=== PATIENT | male | born 1980 | race Hispanic/Latino ===

== ENCOUNTER 2022-06-14 16:07 | Inpatient (IN) | payer BC, SELFPAY ==
[2022-06-14 17:32] VITALS: BMI 28.4
[2022-06-14 18:41] LABS: SARS-CoV-2 NAA Rapid Test Not Detected (NotDetected)
[2022-06-14] MEDS ORDERED: Acetaminophen 325 MG TAB PO PRN (18:52)
[2022-06-14] MEDS ORDERED: HYDROcodone/Acetaminophen 5/325 mg Tablet PO PRN (18:52)
[2022-06-14] MEDS ORDERED: Ondansetron PF 4 MG/2 ML Vial IVP PRN (18:52)
[2022-06-14] MEDS ORDERED: Morphine 2 MG/ML VIAL SLOW IVP PRN (19:05)
[2022-06-14] MEDS: Metoprolol Tartrate 25 MG TAB PO SCH (20:52)
[2022-06-14] MEDS: Sodium Chloride 0.9% 1,000 ML IV SCH (20:52)
[2022-06-14] MEDS: Famotidine 20 MG TAB PO SCH (20:52)
[2022-06-14] MEDS: Morphine 4 MG/ML VIAL SLOW IVP PRN (20:57)
[2022-06-14] MEDS ORDERED: Piperacillin/Tazobactam 3.375 GM in Sodium Chloride 0.9% 100 ML IVPB SCH (22:00)
[2022-06-14] MEDS ORDERED: Piperacillin/Tazobactam 4.5 GM in Sodium Chloride 0.9% 100 ML IVPB SCH (23:59)
[2022-06-15] MEDS ORDERED: Piperacillin/Tazobactam 3.375 GM in Sodium Chloride 0.9% 100 ML IVPB SCH (02:00)
[2022-06-15] MEDS: HYDROcodone/Acetaminophen 10/325 mg Tablet PO PRN ×2 (04:36→19:02)
[2022-06-15 06:05] LABS: #Eosinphils 0.2 thou/uL (0.0-0.7); #Lymphocytes 1.6 thou/uL (1.20-3.40); #Monocytes 0.8 thou/uL (0.11-0.59); #Neutrophils 3.4 thou/uL (1.40-6.50); %Basophils 0.7 % (0.0-1.0); %Eosinophils 3.4 % (0.0-10.0); %Monocytes 13.6 % (0.0-10.0); %Neutrophils 56.2 % (42.0-75.0); Hemoglobin 14.2 g/dL (14.0-18.0); Mean Corpuscular HGB CONC 33.5 g/dL (32.0-36.0); Mean Corpuscular Volume 89.5 fl (78.0-98.0); Mean Platelet Volume 6.5 fL (7.4-10.4); Platelet Count 266 10x3/uL (130-400); RBC Distribution Width 12.8 % (11.5-14.5); Red Blood Cell (RBC) Count 4.73 mill/uL (4.70-6.10)
[2022-06-15] MEDS: Levothyroxine Sodium 100 MCG TAB PO SCH (06:05)
[2022-06-15 06:13] LABS: INR-International Normal Ratio 1.7; Prothrombin Time 20.4 sec (12.0-14.7)
[2022-06-15 06:24] LABS: ALT (SGPT) 467 U/L (8-55); AST (SGOT) 515 U/L (5-34); Alkaline Phosphatase 207 U/L (40-110); Anion Gap 12 mmol/L (10-20); BUN (Urea Nitrogen) 8 mg/dL (8.9-20.6); Bilirubin, Total 2.8 mg/dL (0.2-1.2); Calc. Creatinine Clearance 99 mL/min (70-130); Carbon Dioxide 23 mmol/L (22-29); Chloride 105 mmol/L (98-107); Estimated GFR 76; Globulin 2.6 g/dL (2.4-3.5); Glucose 86 mg/dL (70-105); Potassium 3.9 mmol/L (3.5-5.1); Protein, Total 6.6 g/dL (6.0-8.3); Sodium 136 mmol/L (136-145)
[2022-06-15] MEDS ORDERED: Iopamidol 0 ML ONE (08:14)
[2022-06-15] MEDS ORDERED: Bupivacaine/Epinephrine 0.25% 30 ML VIAL ONE (08:14)
[2022-06-15] MEDS: Metoprolol Tartrate 25 MG TAB PO SCH ×2 (08:19→20:29)
[2022-06-15] MEDS: Famotidine 20 MG TAB PO SCH ×2 (08:19→20:30)
[2022-06-15] MEDS: Piperacillin/Tazobactam 3.375 GM in Sodium Chloride 0.9% 100 ML IVPB SCH ×2 (11:15→17:40)
[2022-06-15] MEDS: Sodium Chloride 0.9% 1,000 ML IV SCH ×2 (11:19→23:52)
[2022-06-15] MEDS: Morphine 4 MG/ML VIAL SLOW IVP PRN (20:30)
[2022-06-16] MEDS: Piperacillin/Tazobactam 3.375 GM in Sodium Chloride 0.9% 100 ML IVPB SCH ×3 (02:42→18:15)
[2022-06-16] MEDS: Levothyroxine Sodium 100 MCG TAB PO SCH (06:19)
[2022-06-16 06:34] LABS: #Eosinphils 0.2 thou/uL (0.0-0.7); #Lymphocytes 2.2 thou/uL (1.20-3.40); #Monocytes 0.6 thou/uL (0.11-0.59); #Neutrophils 2.7 thou/uL (1.40-6.50); %Basophils 0.7 % (0.0-1.0); %Eosinophils 4.2 % (0.0-10.0); %Lymphocytes 38.1 % (21.0-51.0); %Monocytes 10.8 % (0.0-10.0); %Neutrophils 46.1 % (42.0-75.0); Hemoglobin 14.8 g/dL (14.0-18.0); Mean Corpuscular HGB CONC 34.7 g/dL (32.0-36.0); Mean Corpuscular Hemoglobin 30.9 pg (27.0-31.0); Mean Corpuscular Volume 89.1 fl (78.0-98.0); Mean Platelet Volume 6.7 fL (7.4-10.4); Platelet Count 273 10x3/uL (130-400); RBC Distribution Width 12.8 % (11.5-14.5); Red Blood Cell (RBC) Count 4.81 mill/uL (4.70-6.10); White Blood Cell (WBC) Count 5.8 10x3/uL (4.8-10.8)
[2022-06-16 06:42] LABS: INR-International Normal Ratio 1.5; Prothrombin Time 18.3 sec (12.0-14.7)
[2022-06-16 06:53] LABS: ALT (SGPT) 565 U/L (8-55); AST (SGOT) 347 U/L (5-34); Albumin 4.2 g/dL (3.5-5.0); Alkaline Phosphatase 334 U/L (40-110); Bilirubin, Total 4.8 mg/dL (0.2-1.2); Protein, Total 7.1 g/dL (6.0-8.3)
[2022-06-16 07:03] LABS: Anion Gap 15 mmol/L (10-20); BUN (Urea Nitrogen) 10 mg/dL (8.9-20.6); Calc. Creatinine Clearance 92 mL/min (70-130); Calcium 9.4 mg/dL (7.8-10.44); Carbon Dioxide 24 mmol/L (22-29); Chloride 105 mmol/L (98-107); Estimated GFR 69; Glucose 77 mg/dL (70-105); Potassium 3.8 mmol/L (3.5-5.1); Sodium 140 mmol/L (136-145)
[2022-06-16] MEDS ORDERED: Iopamidol 15 ML ONE ×2 (07:10→10:50)
[2022-06-16] MEDS: Metoprolol Tartrate 25 MG TAB PO SCH ×2 (09:46→21:28)
[2022-06-16] MEDS: Famotidine 20 MG TAB PO SCH ×2 (09:46→21:28)
[2022-06-16] MEDS ORDERED: Indomethacin 50 MG SUPP ONE (10:41)
[2022-06-16] MEDS ORDERED: Fentanyl 250 MCG/5 ML VIAL ONE (10:47)
[2022-06-16] MEDS ORDERED: Dexmedetomidine 200 MCG/2 ML VIAL ONE (10:47)
[2022-06-16] MEDS ORDERED: Bupivacaine HCl 0.5%/Epinephrine 1:200,000/PF 30 ml Vial ONE (10:50)
[2022-06-16] MEDS ORDERED: Lidocaine 1% (PF) 30 ML VIAL ONE (10:50)
[2022-06-16] MEDS ORDERED: Bupivacaine/Epinephrine 0.25% 30 ML VIAL ONE (10:51)
[2022-06-16] MEDS: Sodium Chloride 0.9% 1,000 ML IV SCH (11:09)
[2022-06-16] MEDS ORDERED: Dexamethasone 20 MG/5 ML VIAL ONE (11:10)
[2022-06-16] MEDS ORDERED: Rocuronium Bromide 10 MG/ML (10ML VIAL) ONE (11:10)
[2022-06-16] MEDS ORDERED: PROPOFOL 200 MG/20 ML VIAL ONE (11:10)
[2022-06-16] MEDS ORDERED: NEOSTIGMINE 3 MG/3 ML SYR 3 MG/3 ML SYRINGE ONE (11:10)
[2022-06-16] MEDS ORDERED: Ondansetron PF 4 MG/2 ML Vial ONE (11:10)
[2022-06-16] MEDS ORDERED: Glycopyrrolate 0.2 MG/ML 5 ML SYRINGE ONE (11:10)
[2022-06-16] MEDS ORDERED: Lidocaine 1% PF 5 ML VIAL ONE (11:10)
[2022-06-16] MEDS ORDERED: SUGAMMADEX SODIUM 200 MG/2 ML VIAL ONE (12:38)
[2022-06-16] MEDS ORDERED: Ipratropium/Albuterol 3 ML NEB NEB PRN (12:41)
[2022-06-16] MEDS ORDERED: HYDROcodone/Acetaminophen 10/325 mg Tablet PO PRN (12:41)
[2022-06-16] MEDS ORDERED: Ondansetron PF 4 MG/2 ML Vial IVP PRN (12:41)
[2022-06-16] MEDS ORDERED: Dextrose 50% Abboject 50 ML SYRINGE SLOW IVP PRN (12:41)
[2022-06-16] MEDS ORDERED: hydrALAZINE 20 MG/ML VIAL SLOW IVP PRN (12:41)
[2022-06-16] MEDS ORDERED: Dextrose 5% in Water 1,000 ML IV PRN (12:41)
[2022-06-16] MEDS ORDERED: Promethazine HCl 25 MG/ML VIAL IM PRN (12:41)
[2022-06-16] MEDS ORDERED: Mag-Al 1200 mg/1200 mg/30 ML UDCUP PO PRN (12:41)
[2022-06-16] MEDS ORDERED: Calcium Carbonate 500 MG ChewTAB PO PRN (12:41)
[2022-06-16] MEDS ORDERED: Piperacillin/Tazobactam 3.375 GM in Sodium Chloride 0.9% 100 ML IVPB SCH (12:45)
[2022-06-16] MEDS ORDERED: Fentanyl 100 MCG/2 ML VIAL ONE ×3 (13:05→14:08)
[2022-06-16] MEDS: Morphine 4 MG/ML VIAL SLOW IVP PRN ×2 (18:13→21:32)
[2022-06-16] MEDS ORDERED: Famotidine/PF 20 mg/2ml Vial SLOW IVP SCH (21:00)
[2022-06-16] MEDS: HYDROcodone/Acetaminophen 10/325 mg Tablet PO PRN (22:18)
[2022-06-17] MEDS: Piperacillin/Tazobactam 3.375 GM in Sodium Chloride 0.9% 100 ML IVPB SCH ×3 (00:54→18:48)
[2022-06-17] MEDS: Sodium Chloride 0.9% 1,000 ML IV SCH (00:56)
[2022-06-17] MEDS: Morphine 4 MG/ML VIAL SLOW IVP PRN ×4 (02:59→18:47)
[2022-06-17] MEDS: HYDROcodone/Acetaminophen 10/325 mg Tablet PO PRN ×2 (05:06→11:16)
[2022-06-17] MEDS: Levothyroxine Sodium 100 MCG TAB PO SCH (05:07)
[2022-06-17 06:44] LABS: #Lymphocytes 1.6 thou/uL (1.20-3.40); #Monocytes 1.3 thou/uL (0.11-0.59); #Neutrophils 8.1 thou/uL (1.40-6.50); %Basophils 0.2 % (0.0-1.0); %Eosinophils 0.2 % (0.0-10.0); %Lymphocytes 14.2 % (21.0-51.0); %Monocytes 11.4 % (0.0-10.0); %Neutrophils 73.9 % (42.0-75.0); Hemoglobin 13.6 g/dL (14.0-18.0); Mean Corpuscular Hemoglobin 30.6 pg (27.0-31.0); Mean Corpuscular Volume 89.8 fl (78.0-98.0); Mean Platelet Volume 6.3 fL (7.4-10.4); Platelet Count 297 10x3/uL (130-400); RBC Distribution Width 12.9 % (11.5-14.5); Red Blood Cell (RBC) Count 4.45 mill/uL (4.70-6.10)
[2022-06-17 06:51] LABS: INR-International Normal Ratio 1.3; Prothrombin Time 16.4 sec (12.0-14.7)
[2022-06-17 07:03] LABS: ALT (SGPT) 354 U/L (8-55); AST (SGOT) 113 U/L (5-34); Alkaline Phosphatase 275 U/L (40-110); Anion Gap 11 mmol/L (10-20); BUN (Urea Nitrogen) 11 mg/dL (8.9-20.6); Bilirubin, Total 1.9 mg/dL (0.2-1.2); Calc. Creatinine Clearance 86 mL/min (70-130); Calcium 9.1 mg/dL (7.8-10.44); Carbon Dioxide 25 mmol/L (22-29); Chloride 104 mmol/L (98-107); Estimated GFR 64; Globulin 2.7 g/dL (2.4-3.5); Glucose 97 mg/dL (70-105); Lipase 18 U/L (8-78); Potassium 4.3 mmol/L (3.5-5.1); Protein, Total 6.7 g/dL (6.0-8.3); Sodium 136 mmol/L (136-145)
[2022-06-17] MEDS: Metoprolol Tartrate 25 MG TAB PO SCH ×2 (08:35→21:12)
[2022-06-17] MEDS: Famotidine 20 MG TAB PO SCH ×2 (08:35→21:12)
[2022-06-17 15:55] LABS: Hemoglobin 13.4 g/dL (14.0-18.0)
[2022-06-17] MEDS ORDERED: Warfarin Sodium 5 MG TAB PO SCH (17:00)
[2022-06-17] MEDS ORDERED: Promethazine HCl 25 MG/ML VIAL IM PRN (18:38)
[2022-06-17] MEDS ORDERED: HYDROmorphone 10 mg/100 ml CADD IVPB PRN (18:38)
[2022-06-17] MEDS ORDERED: Zolpidem Tartrate 5 MG TAB PO PRN (18:38)
[2022-06-17] MEDS ORDERED: diphenhydrAMINE 25 MG CAP PO PRN (18:38)
[2022-06-17] MEDS ORDERED: diphenhydrAMINE 50 MG/ML VIAL IM PRN (18:38)
[2022-06-17] MEDS ORDERED: diphenhydrAMINE 50 MG/ML VIAL IVP PRN (18:38)
[2022-06-17] MEDS ORDERED: Naloxone HCl 0.4 mg/ml Vial IV PRN (18:38)
[2022-06-17] MEDS ORDERED: Ondansetron PF 4 MG/2 ML Vial IVP PRN (18:38)
[2022-06-17] MEDS ORDERED: Communication Order-Pharmacy FS SCH (18:45)
[2022-06-18] MEDS: Piperacillin/Tazobactam 3.375 GM in Sodium Chloride 0.9% 100 ML IVPB SCH ×3 (02:30→17:48)
[2022-06-18] MEDS: Levothyroxine Sodium 100 MCG TAB PO SCH (05:23)
[2022-06-18 06:22] LABS: #Eosinphils 0.1 thou/uL (0.0-0.7); #Monocytes 0.9 thou/uL (0.11-0.59); %Basophils 0.4 % (0.0-1.0); %Eosinophils 1.6 % (0.0-10.0); %Lymphocytes 21.8 % (21.0-51.0); %Neutrophils 66.2 % (42.0-75.0); Hemoglobin 11.4 g/dL (14.0-18.0); Mean Corpuscular HGB CONC 33.5 g/dL (32.0-36.0); Mean Corpuscular Hemoglobin 30.4 pg (27.0-31.0); Mean Corpuscular Volume 90.7 fl (78.0-98.0); Mean Platelet Volume 6.7 fL (7.4-10.4); Platelet Count 239 10x3/uL (130-400); Red Blood Cell (RBC) Count 3.74 mill/uL (4.70-6.10)
[2022-06-18 06:32] LABS: INR-International Normal Ratio 1.2; Prothrombin Time 15.9 sec (12.0-14.7)
[2022-06-18 06:42] LABS: ALT (SGPT) 294 U/L (8-55); AST (SGOT) 146 U/L (5-34); Albumin 3.7 g/dL (3.5-5.0); Alkaline Phosphatase 211 U/L (40-110); Anion Gap 11 mmol/L (10-20); BUN (Urea Nitrogen) 13 mg/dL (8.9-20.6); Bilirubin, Total 1.2 mg/dL (0.2-1.2); Calc. Creatinine Clearance 107 mL/min (70-130); Calcium 8.3 mg/dL (7.8-10.44); Carbon Dioxide 27 mmol/L (22-29); Chloride 102 mmol/L (98-107); Estimated GFR 83; Globulin 2.5 g/dL (2.4-3.5); Glucose 113 mg/dL (70-105); Potassium 3.6 mmol/L (3.5-5.1); Protein, Total 6.2 g/dL (6.0-8.3); Sodium 136 mmol/L (136-145)
[2022-06-18] MEDS ORDERED: Fentanyl 100 MCG/2 ML VIAL SLOW IVP PRN (09:35)
[2022-06-18] MEDS ORDERED: traMADol HCl 50 MG TAB PO PRN (09:35)
[2022-06-18] MEDS ORDERED: DC PCA Order Set 1 EACH FS SCH (10:17)
[2022-06-18] MEDS: Metoprolol Tartrate 25 MG TAB PO SCH ×2 (10:26→20:55)
[2022-06-18] MEDS: Famotidine 20 MG TAB PO SCH ×2 (10:26→20:55)
[2022-06-18] MEDS: HYDROcodone/Acetaminophen 10/325 mg Tablet PO PRN ×2 (14:14→20:55)
[2022-06-18] MEDS: Warfarin Sodium 5 MG TAB PO SCH (17:47)
[2022-06-18] MEDS: traMADol HCl 50 MG TAB PO PRN (17:47)
[2022-06-19] MEDS: Piperacillin/Tazobactam 3.375 GM in Sodium Chloride 0.9% 100 ML IVPB SCH ×3 (01:49→17:01)
[2022-06-19] MEDS: Levothyroxine Sodium 100 MCG TAB PO SCH (05:39)
[2022-06-19] MEDS: HYDROcodone/Acetaminophen 10/325 mg Tablet PO PRN ×4 (05:40→21:28)
[2022-06-19 06:02] LABS: INR-International Normal Ratio 1.3; Prothrombin Time 16.5 sec (12.0-14.7)
[2022-06-19] MEDS: Metoprolol Tartrate 25 MG TAB PO SCH ×2 (09:12→20:34)
[2022-06-19] MEDS: Famotidine 20 MG TAB PO SCH ×2 (09:12→20:35)
[2022-06-19] MEDS ORDERED: Warfarin Sodium 2 MG TAB PO SCH (17:00)
[2022-06-19] MEDS: Warfarin Sodium 5 MG TAB PO SCH (17:01)
[2022-06-20] MEDS: Piperacillin/Tazobactam 3.375 GM in Sodium Chloride 0.9% 100 ML IVPB SCH ×3 (01:49→17:32)
[2022-06-20] MEDS: traMADol HCl 50 MG TAB PO PRN (01:53)
[2022-06-20] MEDS: Levothyroxine Sodium 100 MCG TAB PO SCH (06:08)
[2022-06-20 07:03] LABS: INR-International Normal Ratio 1.5; Prothrombin Time 19.1 sec (12.0-14.7)
[2022-06-20] MEDS: Metoprolol Tartrate 25 MG TAB PO SCH ×2 (10:03→21:31)
[2022-06-20] MEDS: Famotidine 20 MG TAB PO SCH ×2 (10:03→21:31)
[2022-06-20] MEDS: HYDROcodone/Acetaminophen 10/325 mg Tablet PO PRN (16:06)
[2022-06-20] MEDS: Warfarin Sodium 5 MG TAB PO SCH (17:32)
[2022-06-21] MEDS: Piperacillin/Tazobactam 3.375 GM in Sodium Chloride 0.9% 100 ML IVPB SCH ×3 (02:30→17:07)
[2022-06-21] MEDS: Levothyroxine Sodium 100 MCG TAB PO SCH (06:20)
[2022-06-21 06:45] LABS: #Eosinphils 0.6 thou/uL (0.0-0.7); #Lymphocytes 2.3 thou/uL (1.20-3.40); #Monocytes 0.8 thou/uL (0.11-0.59); #Neutrophils 5.3 thou/uL (1.40-6.50); %Basophils 0.2 % (0.0-1.0); %Eosinophils 6.4 % (0.0-10.0); %Lymphocytes 25.4 % (21.0-51.0); %Monocytes 9.1 % (0.0-10.0); %Neutrophils 58.8 % (42.0-75.0); Hemoglobin 10.6 g/dL (14.0-18.0); Mean Corpuscular HGB CONC 33.8 g/dL (32.0-36.0); Mean Corpuscular Hemoglobin 30.4 pg (27.0-31.0); Mean Corpuscular Volume 89.9 fl (78.0-98.0); Mean Platelet Volume 6.6 fL (7.4-10.4); Platelet Count 308 10x3/uL (130-400); RBC Distribution Width 13.5 % (11.5-14.5); Red Blood Cell (RBC) Count 3.48 mill/uL (4.70-6.10)
[2022-06-21] MEDS: HYDROcodone/Acetaminophen 10/325 mg Tablet PO PRN ×3 (06:49→20:11)
[2022-06-21 06:52] LABS: INR-International Normal Ratio 1.6; Prothrombin Time 19.8 sec (12.0-14.7)
[2022-06-21] MEDS: Famotidine 20 MG TAB PO SCH ×2 (08:05→20:10)
[2022-06-21] MEDS: Metoprolol Tartrate 25 MG TAB PO SCH ×2 (08:06→20:10)
[2022-06-21] MEDS ORDERED: Warfarin Sodium 1.5 MG TAB PO SCH (17:00)
[2022-06-21] MEDS: Warfarin Sodium 5 MG TAB PO SCH (17:07)
[2022-06-22] MEDS: Piperacillin/Tazobactam 3.375 GM in Sodium Chloride 0.9% 100 ML IVPB SCH ×2 (01:17→09:10)
[2022-06-22] MEDS: HYDROcodone/Acetaminophen 10/325 mg Tablet PO PRN ×3 (02:02→19:33)
[2022-06-22] MEDS: Levothyroxine Sodium 100 MCG TAB PO SCH (06:05)
[2022-06-22 07:16] LABS: INR-International Normal Ratio 1.9
[2022-06-22] MEDS: Metoprolol Tartrate 25 MG TAB PO SCH ×2 (09:11→20:10)
[2022-06-22] MEDS: Famotidine 20 MG TAB PO SCH ×2 (09:11→20:10)
[2022-06-22] MEDS: Warfarin Sodium 5 MG TAB PO SCH (16:28)
[2022-06-22] MEDS ORDERED: Warfarin Sodium 1 MG TAB PO SCH (17:00)
[2022-06-23] MEDS: HYDROcodone/Acetaminophen 10/325 mg Tablet PO PRN ×2 (05:50→20:59)
[2022-06-23 06:02] LABS: #Eosinphils 0.6 thou/uL (0.0-0.7); #Lymphocytes 2.8 thou/uL (1.20-3.40); #Monocytes 0.9 thou/uL (0.11-0.59); #Neutrophils 4.1 thou/uL (1.40-6.50); %Basophils 0.3 % (0.0-1.0); %Eosinophils 6.9 % (0.0-10.0); %Lymphocytes 33.6 % (21.0-51.0); %Monocytes 10.2 % (0.0-10.0); %Neutrophils 48.9 % (42.0-75.0); Hemoglobin 10.2 g/dL (14.0-18.0); Mean Corpuscular HGB CONC 33.3 g/dL (32.0-36.0); Mean Corpuscular Hemoglobin 30.2 pg (27.0-31.0); Mean Corpuscular Volume 90.5 fl (78.0-98.0); Mean Platelet Volume 6.5 fL (7.4-10.4); Platelet Count 344 10x3/uL (130-400); RBC Distribution Width 13.9 % (11.5-14.5); Red Blood Cell (RBC) Count 3.37 mill/uL (4.70-6.10); White Blood Cell (WBC) Count 8.4 10x3/uL (4.8-10.8)
[2022-06-23 06:14] LABS: INR-International Normal Ratio 2.1; Prothrombin Time 24.4 sec (12.0-14.7)
[2022-06-23] MEDS: Levothyroxine Sodium 100 MCG TAB PO SCH (06:18)
[2022-06-23 06:22] LABS: Anion Gap 11 mmol/L (10-20); BUN (Urea Nitrogen) 13 mg/dL (8.9-20.6); Calc. Creatinine Clearance 120 mL/min (70-130); Calcium 9.7 mg/dL (7.8-10.44); Carbon Dioxide 25 mmol/L (22-29); Chloride 105 mmol/L (98-107); Estimated GFR 95; Glucose 96 mg/dL (70-105); Potassium 4.2 mmol/L (3.5-5.1); Sodium 137 mmol/L (136-145)
[2022-06-23] MEDS: Metoprolol Tartrate 25 MG TAB PO SCH ×2 (08:10→21:00)
[2022-06-23] MEDS: Famotidine 20 MG TAB PO SCH ×2 (08:10→20:58)
[2022-06-23] MEDS: Warfarin Sodium 5 MG TAB PO SCH (16:40)
[2022-06-24] MEDS: Levothyroxine Sodium 100 MCG TAB PO SCH (05:50)
[2022-06-24] MEDS: HYDROcodone/Acetaminophen 10/325 mg Tablet PO PRN ×2 (05:52→20:49)
[2022-06-24 06:32] LABS: #Eosinphils 0.6 thou/uL (0.0-0.7); #Lymphocytes 2.3 thou/uL (1.20-3.40); #Monocytes 0.8 thou/uL (0.11-0.59); #Neutrophils 4.8 thou/uL (1.40-6.50); %Basophils 0.5 % (0.0-1.0); %Eosinophils 7.2 % (0.0-10.0); %Lymphocytes 26.9 % (21.0-51.0); %Monocytes 9.5 % (0.0-10.0); %Neutrophils 55.9 % (42.0-75.0); Hemoglobin 10.4 g/dL (14.0-18.0); Mean Corpuscular HGB CONC 34.5 g/dL (32.0-36.0); Mean Corpuscular Hemoglobin 31.3 pg (27.0-31.0); Mean Corpuscular Volume 90.5 fl (78.0-98.0); Mean Platelet Volume 6.4 fL (7.4-10.4); Platelet Count 388 10x3/uL (130-400); RBC Distribution Width 13.8 % (11.5-14.5); Red Blood Cell (RBC) Count 3.32 mill/uL (4.70-6.10); White Blood Cell (WBC) Count 8.5 10x3/uL (4.8-10.8)
[2022-06-24 06:33] LABS: INR-International Normal Ratio 1.9; Prothrombin Time 22.5 sec (12.0-14.7)
[2022-06-24 06:41] LABS: Anion Gap 11 mmol/L (10-20); BUN (Urea Nitrogen) 13 mg/dL (8.9-20.6); Calc. Creatinine Clearance 100 mL/min (70-130); Calcium 9.3 mg/dL (7.8-10.44); Carbon Dioxide 26 mmol/L (22-29); Chloride 103 mmol/L (98-107); Estimated GFR 76; Glucose 96 mg/dL (70-105); Magnesium 2.3 mg/dL (1.6-2.6); Phosphorus 3.8 mg/dL (2.3-4.7); Sodium 136 mmol/L (136-145)
[2022-06-24] MEDS: Metoprolol Tartrate 25 MG TAB PO SCH ×2 (09:14→20:49)
[2022-06-24] MEDS: Famotidine 20 MG TAB PO SCH ×2 (09:14→20:49)
[2022-06-24 09:41] LABS: INR-International Normal Ratio 1.9; Prothrombin Time 22.3 sec (12.0-14.7)
[2022-06-24] MEDS ORDERED: Docusate 100 MG CAP PO PRN (16:07)
[2022-06-24] MEDS ORDERED: Warfarin Sodium 1 MG TAB PO SCH (17:00)
[2022-06-24] MEDS: Warfarin Sodium 5 MG TAB PO SCH (18:11)
[2022-06-25] MEDS: Levothyroxine Sodium 100 MCG TAB PO SCH (05:24)
[2022-06-25 06:03] LABS: #Eosinphils 0.6 thou/uL (0.0-0.7); #Lymphocytes 2.4 thou/uL (1.20-3.40); #Monocytes 0.9 thou/uL (0.11-0.59); #Neutrophils 5.6 thou/uL (1.40-6.50); %Basophils 0.1 % (0.0-1.0); %Eosinophils 5.9 % (0.0-10.0); %Lymphocytes 25.1 % (21.0-51.0); %Monocytes 9.7 % (0.0-10.0); %Neutrophils 59.2 % (42.0-75.0); Hemoglobin 10.2 g/dL (14.0-18.0); Mean Corpuscular HGB CONC 34.4 g/dL (32.0-36.0); Mean Corpuscular Hemoglobin 30.6 pg (27.0-31.0); Mean Corpuscular Volume 89.1 fl (78.0-98.0); Mean Platelet Volume 6.4 fL (7.4-10.4); Platelet Count 401 10x3/uL (130-400); RBC Distribution Width 13.8 % (11.5-14.5); Red Blood Cell (RBC) Count 3.33 mill/uL (4.70-6.10); White Blood Cell (WBC) Count 9.4 10x3/uL (4.8-10.8)
[2022-06-25 06:12] LABS: INR-International Normal Ratio 1.8; Prothrombin Time 21.6 sec (12.0-14.7)
[2022-06-25 06:28] LABS: Anion Gap 11 mmol/L (10-20); BUN (Urea Nitrogen) 14 mg/dL (8.9-20.6); Calc. Creatinine Clearance 103 mL/min (70-130); Calcium 9.5 mg/dL (7.8-10.44); Carbon Dioxide 26 mmol/L (22-29); Chloride 104 mmol/L (98-107); Estimated GFR 79; Glucose 104 mg/dL (70-105); Potassium 4.1 mmol/L (3.5-5.1); Sodium 137 mmol/L (136-145)
[2022-06-25] MEDS: Metoprolol Tartrate 25 MG TAB PO SCH ×2 (10:28→20:46)
[2022-06-25] MEDS: Famotidine 20 MG TAB PO SCH ×2 (10:29→20:46)
[2022-06-25] MEDS ORDERED: Warfarin Sodium 1 MG TAB PO SCH (17:00)
[2022-06-25] MEDS: Warfarin Sodium 5 MG TAB PO SCH (17:56)
[2022-06-25] MEDS: HYDROcodone/Acetaminophen 10/325 mg Tablet PO PRN (20:46)
[2022-06-26] MEDS: Levothyroxine Sodium 100 MCG TAB PO SCH (05:53)
[2022-06-26 05:56] LABS: #Eosinphils 0.4 thou/uL (0.0-0.7); #Lymphocytes 2.4 thou/uL (1.20-3.40); #Neutrophils 4.9 thou/uL (1.40-6.50); %Basophils 0.5 % (0.0-1.0); %Eosinophils 4.9 % (0.0-10.0); %Lymphocytes 27.8 % (21.0-51.0); %Monocytes 11.2 % (0.0-10.0); %Neutrophils 55.6 % (42.0-75.0); Hemoglobin 9.8 g/dL (14.0-18.0); Mean Corpuscular HGB CONC 33.6 g/dL (32.0-36.0); Mean Corpuscular Hemoglobin 29.9 pg (27.0-31.0); Mean Platelet Volume 6.4 fL (7.4-10.4); Platelet Count 422 10x3/uL (130-400); RBC Distribution Width 13.6 % (11.5-14.5); Red Blood Cell (RBC) Count 3.26 mill/uL (4.70-6.10); White Blood Cell (WBC) Count 8.8 10x3/uL (4.8-10.8)
[2022-06-26 06:07] LABS: Prothrombin Time 23.4 sec (12.0-14.7)
[2022-06-26 06:16] LABS: Anion Gap 12 mmol/L (10-20); BUN (Urea Nitrogen) 13 mg/dL (8.9-20.6); Calc. Creatinine Clearance 107 mL/min (70-130); Calcium 9.4 mg/dL (7.8-10.44); Carbon Dioxide 26 mmol/L (22-29); Chloride 105 mmol/L (98-107); Estimated GFR 83; Glucose 96 mg/dL (70-105); Sodium 139 mmol/L (136-145)
[2022-06-26] MEDS: Famotidine 20 MG TAB PO SCH (09:08)
[2022-06-26] MEDS: Metoprolol Tartrate 25 MG TAB PO SCH (09:09)
[2022-06-26 11:00] LABS: Hemoglobin 10.7 g/dL (14.0-18.0)
[2022-06-26 13:17] VITALS: TEMP 98.4
[2022-06-26] MEDS ORDERED: Warfarin Sodium 3 MG TAB PO SCH (17:00)
[2022-06-26 17:28] VITALS: BP 100/62
== END 2022-06-26 18:00 | disposition home or self-care (01) | DRG 418 ==
LOC: SJJU 17:22 → INTOOBSV 17:22 → OBSVTOIN 06-15 12:12
PROVIDERS: ADMIT Internal Medicine; ATTEND Internal Medicine
PROC: 0FT44ZZ Resection of Gallbladder, Percutaneous Endoscopic Approach (ICD-10-PCS; principal; 2022-06-16)
PROC: 0FC98ZZ Extirpation of Matter from Common Bile Duct, Via Natural or Artificial Opening Endoscopic (ICD-10-PCS; 2022-06-16)
PROC: BF131ZZ Fluoroscopy of Gallbladder and Bile Ducts using Low Osmolar Contrast (ICD-10-PCS; 2022-06-16)
DX: K80.62 Calculus of gallbladder and bile duct with acute cholecystitis without obstruction (principal); D68.32 Hemorrhagic disorder due to extrinsic circulating anticoagulants; Z20.822 Contact with and (suspected) exposure to COVID-19; I10 Essential (primary) hypertension; E03.9 Hypothyroidism, unspecified; M79.81 Nontraumatic hematoma of soft tissue; T45.515A Adverse effect of anticoagulants, initial encounter; Z95.2 Presence of prosthetic heart valve; Z79.899 Other long term (current) drug therapy; Z79.890 Hormone replacement therapy; Z79.01 Long term (current) use of anticoagulants; Z98.890 Other specified postprocedural states; Z98.52 Vasectomy status; Z87.891 Personal history of nicotine dependence
CPT/HCPCS: 36415; 36416; 74176; 74177; 74330; 80048; 80053; 80076; 82274; 83690; 83735; 84100; 85025; 85610; 87811; 88304; 96365; 96372; 96375; 96376; C1725; C1889; G0378; J1100; J1611; J1650; J2001; J2270; J2405; J2543; J2704; J3010; J3490; J7050; Q9967; U0002